=== PATIENT | male | born 1990 | race Caucasian/White ===

== ENCOUNTER 2016-10-24 22:35 | Emergency (ER) | payer SELFPAY ==
[~2016-10-24] VITALS: Ht 188 cm; Wt 77.1 kg
--- NOTE | 2016-10-24 22:35 | NUR ---
[facility] TO ER OF1
--- NOTE | 2016-10-24 22:36 | NUR ---
Patient being evaluated by physician.
[2016-10-24 22:38] VITALS: BP 123/92
[2016-10-24 22:44] VITALS: BP 123/92
== END 2016-10-24 22:45 ==
LOC: MED 22:35
DX: Z02.89 Encounter for other administrative examinations (principal); S80.212A Abrasion, left knee, initial encounter; S80.211A Abrasion, right knee, initial encounter; X58.XXXA Exposure to other specified factors, initial encounter; Y93.89 Activity, other specified; Y92.89 Other specified places as the place of occurrence of the external cause; Y99.8 Other external cause status